=== PATIENT | female | born 1960 | race Caucasian/White ===

== ENCOUNTER 2017-01-18 10:43 | Emergency (ER) | payer OTHER ==
[2017-01-18] MEDS ORDERED: methylPREDNISolone Acetate 40 mg/ml Vial ONE (11:30)
== END 2017-01-18 11:45 | disposition home or self-care (01) ==
LOC: NAV ERS 10:43
DX: L25.9 Unspecified contact dermatitis, unspecified cause (principal); E03.9 Hypothyroidism, unspecified; I10 Essential (primary) hypertension; Z79.899 Other long term (current) drug therapy
CPT/HCPCS: 96372; J1030

== ENCOUNTER 2017-12-21 12:14 | Emergency (ER) | payer SELFPAY ==
[2017-12-21] MEDS ORDERED: Sodium Chloride 0.9% 1,000 ML ONE ×2 (13:17→15:48)
[2017-12-21] MEDS ORDERED: Acetaminophen 500 MG TAB ONE (13:17)
[2017-12-21] MEDS ORDERED: Ondansetron ODT 4 MG TAB ONE (13:17)
[2017-12-21 13:58] LABS: Bilirubin Negative (Negative); Blood, Urine Negative (Negative); Clarity Clear (Clear); Glucose, Urine (Dipstick) Negative (Negative); Leukocyte Negative (Negative); Nitrite Negative (Negative); Protein, Urine (Dipstick) Negative (Neg-Trace); Urobilinogen 0.2 mg/dL (0.2-1.0)
[2017-12-21 14:46] LABS: #Basophils 0.1 thou/uL (0.0-0.2); #Lymphocytes 1.2 thou/uL (1.20-3.40); #Monocytes 0.6 thou/uL (0.11-0.59); #Neutrophils 9.3 thou/uL (1.40-6.50); %Basophils 0.6 % (0.0-1.0); %Eosinophils 0.1 % (0.0-10.0); %Lymphocytes 10.9 % (21.0-51.0); %Monocytes 5.2 % (0.0-10.0); %Neutrophils 83.2 % (42.0-75.0); Mean Corpuscular HGB CONC 31.1 g/dL (32.0-36.0); Mean Corpuscular Hemoglobin 27.3 pg (27.0-31.0); Mean Corpuscular Volume 87.5 fl (81.0-99.0); Mean Platelet Volume 13.2 fL (7.4-10.4); Platelet Count 204 thou/uL (130-400); RBC Distribution Width 11.7 % (11.5-14.5); Red Blood Cell (RBC) Count 5.14 mill/uL (4.20-5.40); White Blood Cell (WBC) Count 11.2 thou/uL (4.8-10.8)
[2017-12-21 14:54] LABS: ALT (SGPT) 22 U/L (8-55); AST (SGOT) 21 U/L (5-34); Albumin 3.9 g/dL (3.5-5.0); Alkaline Phosphatase 109 U/L (40-150); Anion Gap 18 mmol/L (10-20); BUN (Urea Nitrogen) 9 mg/dL (9.8-20.1); Bilirubin, Total 0.6 mg/dL (0.2-1.2); Calc. Creatinine Clearance 0 mL/min (70-130); Calcium 8.8 mg/dL (7.8-10.44); Carbon Dioxide 18 mmol/L (22-29); Chloride 105 mmol/L (98-107); Estimated GFR-MDRD Greater than 90; Glucose 90 mg/dL (70-105); Potassium 4.2 mmol/L (3.5-5.1); Protein, Total 6.9 g/dL (6.0-8.3); Sodium 137 mmol/L (136-145)
[2017-12-21 14:55] LABS: CKMB 1.4 ng/mL (0-6.6); Troponin I Less than 0.010 ng/mL (< 0.028)
[2017-12-21] MEDS ORDERED: cefTRIAXone\\ROCEPHIN 1 GM VIAL ONE (15:14)
[2017-12-21] MEDS ORDERED: Sodium Chloride 0.9% 100 ML ONE ×2 (15:15→15:47)
--- NOTE | 2017-12-21 15:24 | RAD ---
PORTABLE AP CHEST RADIOGRAPH: Date: 12-21-17 History: Chest pain, shortness of breath. Comparison: 08-14-14 FINDINGS: Cardiac silhouette and pulmonary vasculature are within normal limits. Lungs are clear. Post-surgical changes in the thoracolumbar spine are again noted with anchor screws seen overlying the right humer al head. Tiny linear metallic density overlies the left humeral head which may be related to overlyin g artifact. No other interval change. IMPRESSION: No acute cardiopulmonary process. POS: TAMIKA
[2017-12-21] MEDS ORDERED: Piperacillin/Tazobactam 3.375 GM VIAL ONE (15:47)
== END 2017-12-21 16:10 | disposition short-term general hospital (02) ==
LOC: NAV ERS 12:14
DX: E86.0 Dehydration (principal); G82.20 Paraplegia, unspecified; E03.9 Hypothyroidism, unspecified; I10 Essential (primary) hypertension; F32.9 Major depressive disorder, single episode, unspecified; Z79.899 Other long term (current) drug therapy
CPT/HCPCS: 51702; 71045; 80053; 81003; 82553; 83605; 84484; 85025; 87040; 87077; 87086; 87186; 93005; 96361; 96365; 96375; A4353; J0696; J2543; J7050; Q0162

== ENCOUNTER 2018-03-02 10:55 | Emergency (ER) | payer SELFPAY ==
[2018-03-02] MEDS ORDERED: cefTRIAXone\\ROCEPHIN 1 GM VIAL ONE (12:06)
[2018-03-02] MEDS ORDERED: Lidocaine 1% 20 ML MDV ONE (12:06)
[2018-03-02] MEDS ORDERED: Silver Sulfadiazine 1% Cream 50 GM JAR ONE (12:16)
== END 2018-03-02 12:43 | disposition home or self-care (01) ==
LOC: NAV ERS 10:55
DX: T24.331A Burn of third degree of right lower leg, initial encounter (principal); I10 Essential (primary) hypertension; T31.0 Burns involving less than 10% of body surface; Z79.899 Other long term (current) drug therapy; X19.XXXA Contact with other heat and hot substances, initial encounter
CPT/HCPCS: 16020; 51701; 87070; 87205; 96372; J0696; J2001

== ENCOUNTER 2019-01-24 12:21 | Emergency (ER) | payer SELFPAY ==
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
== END 2019-01-24 13:10 | disposition home or self-care (01) ==
LOC: NAV ERS 12:21
DX: S90.32XA Contusion of left foot, initial encounter (principal); I10 Essential (primary) hypertension; E03.9 Hypothyroidism, unspecified; Z86.711 Personal history of pulmonary embolism; Z79.899 Other long term (current) drug therapy; X58.XXXA Exposure to other specified factors, initial encounter

== ENCOUNTER 2021-12-22 15:24 | Emergency (ER) | payer OTHER | END 2021-12-22 16:45 | disposition home or self-care (01) | LOC: NAV ERS 15:24 | DX: J06.9 Acute upper respiratory infection, unspecified (principal); J01.00 Acute maxillary sinusitis, unspecified; I10 Essential (primary) hypertension; E03.9 Hypothyroidism, unspecified; E78.5 Hyperlipidemia, unspecified; Z86.711 Personal history of pulmonary embolism; Z79.899 Other long term (current) drug therapy | CPT/HCPCS: 71045 ==

== ENCOUNTER 2022-11-10 08:35 | Outpatient (CLI) | payer OTHER | END 2022-11-10 08:36 | disposition home or self-care (01) | LOC: NAV RAD 08:35 | PROVIDERS: ATTEND Neurological Surgery | DX: M54.50 Low back pain, unspecified (principal); M47.816 Spondylosis without myelopathy or radiculopathy, lumbar region; M47.814 Spondylosis without myelopathy or radiculopathy, thoracic region; M43.8X4 Other specified deforming dorsopathies, thoracic region; M48.54XD Collapsed vertebra, not elsewhere classified, thoracic region, subsequent encounter for fracture with routine healing | CPT/HCPCS: 72072; 72100 ==

== ENCOUNTER 2023-03-11 09:47 | Outpatient (CLI) | payer OTHER | END 2023-03-11 09:48 | disposition home or self-care (01) | LOC: NAV RAD 09:47 | PROVIDERS: ATTEND Nurse Practitioner Family | DX: M25.571 Pain in right ankle and joints of right foot (principal) ==

== ENCOUNTER 2024-02-19 09:08 | Outpatient (CLI) | payer MEDICARE | END 2024-02-19 09:09 | disposition home or self-care (01) | LOC: NAV RAD 09:08 | PROVIDERS: ATTEND Nurse Practitioner Family | DX: M25.552 Pain in left hip (principal) | CPT/HCPCS: 72170 ==

== ENCOUNTER 2024-05-29 08:45 | Outpatient (CLI) | payer MEDICARE | END 2024-05-29 08:46 | disposition home or self-care (01) | LOC: NAV RAD 08:45 | PROVIDERS: ATTEND Nurse Practitioner Family | DX: M25.511 Pain in right shoulder (principal); M19.011 Primary osteoarthritis, right shoulder; Z98.890 Other specified postprocedural states ==

== ENCOUNTER 2024-08-26 09:06 | Emergency (ER) | payer MEDICARE, MEDICAID ==
[2024-08-26] MEDS ORDERED: Bacitracin 1 PK ONE (09:42)
[2024-08-26] MEDS ORDERED: Cephalexin 500 MG CAP ONE (09:43)
== END 2024-08-26 10:23 | disposition home or self-care (01) ==
LOC: NAV ERS 09:06
DX: L03.031 Cellulitis of right toe (principal); I10 Essential (primary) hypertension; E78.5 Hyperlipidemia, unspecified; Z79.899 Other long term (current) drug therapy
CPT/HCPCS: 99283